=== PATIENT | female | born 2000 | race Caucasian/White ===

== ENCOUNTER 2025-08-11 11:14 | Emergency (ER) | payer BC, SELFPAY ==
--- OUTSIDE RECORDS SUMMARY | 2025-08-11 11:16 | XMS_ITS | Clinical Summary ---
Author Organization [employer] Address [address] [place] [id number] Care Team Providers Care Belt Knife Feeder Name Role Phone Radha Vasquez MD Primary Care Provider [phone] Allergies Active Allergy Reactions Criticality Noted Date Comments Nickel Rash 11/17/2007 Medications DULoxetine (CYMBALTA) 30 mg Delayed-releas e capsuleIndicat ions:Severe episode of recurrent major depressive disorder, without psychotic features (HC) Take 1 Capsule (30 mg) by mouth once daily for 14 days, THEN 2 Capsules (60 mg) once daily. 90 Capsule 5 08/26/20 25 Active busPIRone (BUSPAR) 5 mg tabletIndicati ons:Severe episode of recurrent major depressive disorder, without psychotic features (HC),Generaliz ed anxiety disorder Take 1 Tablet (5 mg) by mouth two times daily for 7 days, THEN 2 Tablets (10 mg) two times daily for 7 days, THEN 3 Tablets (15 mg) two times daily. 222 Tablet 5 08/26/20 25 Active albuterol HFA (PRO-AIR; VENTOLIN; PROVENTIL) 90 mcg/actuation inhalerIndicat ions:SOB (shortness of breath),Season al asthma (HC) Inhale 1-2 Puffs by mouth every 4 hours if needed for Shortness of Breath 1st choice. 1 Each 5 Active cetirizine (ZYRTEC) 10 mg tabletIndicati ons:Seasonal allergies Take 1 Tablet (10 mg) by mouth once daily. 90 Tablet 1 5 Active cholecalcifero l (Vitamin D-3) 2,000 unit capsuleIndicat ions:Vitamin D deficiency Take 1 Capsule (2,000 units) by mouth once daily. 90 Capsule 1 5 Active albuterol HFA (PRO-AIR; VENTOLIN; PROVENTIL) 90 mcg/actuation inhalerIndicat ions:SOB (shortness of breath),Season al asthma (HC) Inhale 1-2 Puffs by mouth every 4 hours if needed for Shortness of Breath 1st choice. 1 Each 2 07/13/20 25 Discontinue d(Reorder (E-cancel not sent)) fluconazole (DIFLUCAN) 150 mg tabletIndicati ons:Yeast infection Take 1 Tablet (150 mg) by mouth one time for 1 dose. 1 Tablet 5 08/06/20 25 Hospital, Clinic, or Other Facility Administered Medication Ordered Dose Route Frequency Start Date End Date Status copper intrauterine device (PARAGARD)Indications:Encoun ter for IUD insertion 1 Device IU Q 10 YEARS 08/09/2025 Act cristiane Active Problems Problem Noted Date Diagnosed Date Atypical squamous cells of u ndetermined significance (ASCUS) on Papanicolaou smear of cervix 07/20/2025 Overview (07/20/2025): 06/2025 ASCUS Plan: Pap due 06/2026 Asthma, unspecified asthma s everity, unspecified whether complicated, unspecified whether persistent 07/13/2025 Dysthymic disorder 06/30/2023 Severe episode of recurrent major depressive disorder, without psychotic features 02/27/2020 Generalized anxiety disorder 02/27/2020 Resolved Problems Problem Noted Date Diagnosed Date Resolved Date Dysthymic disorder 07/25/2014 0 Overview (07/25/2014): May need to rule out ADD in future still Encounters Date Type Department Care Team Description 08/10/2025 Nurse Triage [facility] [address] [place] [address] Radha Vasquez MD Contraception; Abdominal Pain 08/10/2025 Telephone [facility] [address] [place] [address] Radha Vasquez MD 08/09/2025 2:30 PM CDT Office Visit [facility] [address] [place] [address] Valeria Montana, [facility] Visit 08/09/2025 1:35 PM CDT Procedure Only [facility] [address] [place] [address] Radha Vasquez MD IUD 08/09/2025 Travel 08/06/2025 Refill [facility] [address] [place] [address] Radha Vasquez MD Refill Request 08/04/2025 Travel 07/24/2025 10:00 AM CDT Telemedicine [facility] [address] [place] [address] Valeria Montana, [facility] Visit; Telehealth 07/22/2025 Travel 07/16/2025 Telephone [facility] [address] [place] [address] Radha Vasquez MD Form 07/13/2025 1:35 PM CDT Office Visit [facility] [address] [place] [address] Radha Vasquez MD Physical (24 Year Old ); Job Cost Estimator Exam (First one ) 07/13/2025 Travel from Last 3 Months Immunizations Immunization Administration Dates Next Due DTaP 09/29/2007,2002 [id number] (Pediarix) 03/27/2003,02/08/2003 HIB PRP-T (ActHIB,Hiberix) 03/27/2003,02/08/2003 HIB-HepB (Comvax) 01/01/2004,2002 HPV 9 (Gardasil 9) 10/02/2016 Hepatitis A (Peds) 10/02/2016,06/12/2014 Human Papilloma Virus Vaccine 10/02/2016, 015,06/12/2014 Inactivated Polio Vaccine 09/29/2007,2002 Influenza Virus, Unspecified 10/24/2003 Influenza, IIV3 (Age >=3 years) 10/24/2003 MENINGOCOCCAL VACCINE 2 VIAL 2MO-55YO (MENVEO) 03/08/2019,06/12/2014 MMR 10/24/2003 MMRV 09/29/2007 Pneumococcal conj 7-Valent (Prevnar 7) 3,02/08/2003,2002 Tdap 08/09/2025,06/12/2014 Varicella Vaccine 10/24/2003 Family History Medical History Relation Name Comments No Known Problems Father No Known Problems Mother No Known Problems Sister Relation Name Status Comments Father Alive Mother Alive Sister Alive Social History Tobacco Use Types Packs/Day Years Used Date Smoking Tobacco: Never Smokeless Tobacco: Never Tobacco Cessation:Counseling Given: Not Answered Comments:non-smoking home Alcohol Use Standard Drinks/Week Comments No 0 (1 standard drink = 0.6 oz pur e alcohol) PHQ-2 Answer Date Recorded PHQ-2 TOTAL SCORE 5 07/13/2025 Social Connections Answer Date Recorded Do you often feel lonely or isolated from those around you? 0 07/13/2025 Alcohol Use Answer Date Recorded How often do you have a drink containing alcohol ? 0 08/09/2025 Average Number of Drinks Not on file 025 Frequency of Binge Drinking Not on file 07/30 Financial Resource Strain Answer Date R ecorded Difficulty of Paying Living Expenses 3 07/13/2025 Difficulty of Paying Living Expenses Not on file 07/13/2025 Food Insecurity Answer Date Recorded Do you worry your food will run out before you are able to buy more? 1 07/13/2025 Transportation Needs Answer Date Record ed Does lack of transportation keep you from medica l appointments? 1 07/13/2025 Does lack of transportation keep you from work, meetings or getting things that you need? 1 07/13/2025 Housing Stability Answer Date Recorded What is your housing situation today? 1 07/13/2025 Utilities Answer Date Recorded Do you have trouble paying f or utilities (for example, heat, electricity, water, phone)? 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 Gender Identity Not on file Sexual Orientation Not on file Obstetrics History Para Term AB IAB SAB Ectopic Multiple Livin g Live Births 1 0 0 0 0 0 0 0 0 0 0 Date Outcome GA Total Labor Labor/2nd/3rd Weight Sex Type Anes PTL Radha A1 A5 Name Clin Last Filed Vital Signs Vital Sign Reading Time Taken Comments Blood Pressure 106/71 08/09/2025 1:42 PM CDT Pulse 78 08/09/2025 1:42 PM CDT Temperature 36.9 C (98.5 F) 07/13/2025 1:47 PM CDT Respiratory Rate 16 07/09/2023 9:34 PM CDT Oxygen Saturation 100% 08/09/2025 1:42 PM CDT Inhaled Oxygen Concentration - - Weight 78.2 kg (172 lb 6.4 oz) 08/09/2025 1:42 P M CDT Height 155.6 cm (5' 1.26) 07/13/2025 1:47 PM CD T Body Mass Index 32.3 07/13/2025 1:47 PM CDT Plan of Treatment Upcoming Encounters Date Type Department Care Team (Late st Contact Info) Description 08/15/2025 10:45 AM CDT Office Visit [facility] [address] [place] [address] Ruma Sandy, FLYNN [address] [place] [address] 08/16/2025 2:30 PM CDT Telemedicine [facility] [address] [place] [address] Valeria Montana, [facility] [address] [place] [address] 09/06/2025 3:15 PM CDT Telemedicine [facility] [address] [place], [place] [address] Dodie Dobbins, Psychology Student [address] [place], [place] [address] 09/10/2025 1:00 PM CDT Office Visit [facility] [address] [place] [address] Kan Fernandez MD [address] [place], [place] [id number] 10/09/2025 12:45 PM PERSONNEL ASSOCIATE Telemedicine [facility] [address] [place] [address] Marcia Parada NP [address] [place] [address] Health Maintenance Due Date Last Done Comments COVID-19 vaccine series (2023- season) 2025 Influenza Vaccine (#1) 2025 10/24/2003, 2002 BMI (ht and wt on same day) for age 18+ 07/13/2026 07/13/2025, 12/15/2022, 05/20/2022, Additional history exists Chlamydia for age 16-24 07/13/2026 07/13/20 25, 01/09/2023, 05/03/2022 (Verified in Care Everywhere or Patient Record), Additional history exists Depression screening for age 12+ 07/13/2026 07/13/2025, 06/30/2023, 12/15/2022, Additional history exists Pap test for age 21-65 07/13/2026 07/13/2025 Tetanus booster 08/09/2035 08/09/2025, 06/12/2014 RSV vaccine for adults or (1 - 1-dose 75+ series) 2077 Pneumococcal series for age 6-49 Aged Out 03/27/2003, 02/08/2003, 2002 No longer eligible based on patient's age to complete this topic Hepatitis B series for 19+ Completed 01/01, 03/27/2003, 02/08/2003, Additional history exists HPV series for age 9-45 Completed 10/02/20 16, 10/02/2016, 03/25/2015, Additional history exists HIV for age 15-65 Completed 05/05/2021 Hepatitis C screening for age 18-79 Completed 05/05/2021 Procedures Procedure Name Priority Date/Time Associated Diagnosis Comments TSH WITH REFLEX Routine 08/09/2025 3:41 PM CDT Chronic fatigue URINE POCT Routine 08/09/2025 1:38 PM CDT Encounter for IUD insertion FERRITIN Routine 07/13/2025 2:56 PM CDT Chronic fatigue CBC WITH AUTO DIFFERENTIAL Routine 07/13/2025 2:56 PM CDT Chronic fatigue COMP METABOLIC PANEL Routine 07/13/2025 2:56 PM CDT Chronic fatigue STORE GROCERY MERCHANDISER THIN PREP PAP SCREEN IMAGED Routine 07/13/2025 2:53 PM CDT Screening for cervical cancer GC CHLAMYDIA TRACH PROBE Routine 07/13/2025 2:53 PM CDT Screening examination for STD (sexually transmitted disease) ANTI HIV 1/2 Routine 05/05/2021 11:57 AM CDT Encounter for assessment of STD exposure ANTI HCV Routine 05/05/2021 11:57 AM CDT Encounter for assessment of STD exposure from Last 3 Months or Most Recently Relevant to Health Maintenance Results * TSH WITH REFLEX (08/09/2025 3:41 PM CDT) TSH W/REFLEX TO FT4 0.73 mIU/L 08/10/2025 4:51 AM CDT [facility] Comment: Reference Range > or = 20 Years 0.40-4.50 Ranges First trimester 0.26-2.66 Second trimester 0.55-2.73 Third trimester 0.43-2.91 Blood BLOOD SPECIMEN / Unknown [facility] / Unknown 08/09/2025 3:41 PM CDT 08/09/2025 3:41 PM CDT Radha Vasquez MD CHEMISTRY Final Resul t [employer] [address] [place] [address], [place] [phone] * POCT Urine (08/09/2025 1:38 PM CDT) Pathologist [facility] POC HCG URINE NEGATIVE NEGATIVE 08/09/2025 1:[address] [facility] Urine URINE SPECIMEN / Unknown Non-Blood / Unknown 08/09/2025 1:38 PM CDT 08/09/2025 1:42 PM CDT Radha Vasquez MD URINE Final Resul t Performing Organization Address [facility] Co de Phone Number [employer] [address] [address], [place] [phone] [place] [address], [place] [phone] * (ABNORMAL) CBC AND DIFFERENTIAL (07/13/2025 2:56 PM CDT) [facility] WHITE BLOOD CELL COUNT 6.6 3.8 - 10.8 Thousand/u L [facility] RED BLOOD CELL COUNT 4.36 3.80 - 5.10 Million/uL [facility] HEMOGLOBIN 13.7 11.7 - 15.5 g/dL [facility] HEMATOCRIT 41.0 35.0 - 45.0 % [facility] MCV 94.0 80.0 - 100.0 fL [facility] MCH 31.4 27.0 - 33.0 pg [facility] MCHC 33.4 32.0 - 36.0 g/dL [facility] Comment: For adults, a slight decrease in the calculated MCHC value (in the range of 30 to 32 g/dL) is most likely not clinically significant; however, it should be interpreted with caution in correlation with other red cell parameters and the patient's clinical condition. RDW 12.8 11.0 - 15.0 % [facility] PLATELET COUNT 235 140 - 400 Thousand/u L [facility] MPV 13.1(H) 7.5 - 12.5 fL [facility] ABSOLUTE NEUTROPHILS 4,066 1,500 - 7,800 cells/uL [facility] ABSOLUTE LYMPHOCYTES 1,742 850 - 3,900 cells/uL [facility] ABSOLUTE MONOCYTES 521 200 - 950 cells/uL [facility] ABSOLUTE EOSINOPHILS 211 15 - 500 cells/uL [facility] ABSOLUTE BASOPHILS 59 0 - 200 cells/uL [facility] NEUTROPHILS 61.6 % [facility] LYMPHOCYTES 26.4 % [facility] MONOCYTES 7.9 % [facility] EOSINOPHILS 3.2 % [facility] BASOPHILS 0.9 % [facility] Blood BLOOD SPECIMEN / Unknown 07/13/2025 2:56 PM CDT 07/13/2025 2:56 PM CDT us Radha Vasquez MD HEMATOLOGY Final Resul t [employer] [facility] [address] [place] [address], [place] [phone] [facility] [address] [place] [address] * FERRITIN (07/13/2025 2:56 PM CDT) FERRITIN 35 16 - 154 ng/mL [facility] Blood BLOOD SPECIMEN / Unknown 07/13/2025 2:56 PM CDT 07/13/2025 2:56 PM CDT Radha Vasquez MD CHEMISTRY Final Resul t [facility] [address] [place] [address], [place] [phone] [facility] [address] [place] [address] * COMP METABOLIC PANEL (07/13/2025 2:56 PM CDT) GLUCOSE 84 65 - 99 mg/dL [facility] [employer] [facility] Comment: Fasting reference interval UREA NITROGEN (BUN) 10 7 - 25 mg/dL [facility] CREATININE 0.72 0.50 - 0.96 mg/dL [facility] Lambe EGFR 121 > OR = 60 mL/min/1. 73m2 [facility] BUN/CREATININE RATIO SEE NOTE: 6 - 22 (calc) [facility] Comment: Not Reported: BUN and Creatinine are within reference range. SODIUM 141 135 - 146 mmol/L [facility] POTASSIUM 4.4 3.5 - 5.3 mmol/L [facility] CHLORIDE 105 98 - 110 mmol/L [facility] CARBON DIOXIDE 31 20 - 32 mmol/L [facility] CALCIUM 9.8 8.6 - 10.2 mg/dL [facility] PROTEIN, TOTAL 7.4 6.1 - 8.1 g/dL [facility] ALBUMIN 4.6 3.6 - 5.1 g/dL [facility] GLOBULIN 2.8 1.9 - 3.7 g/dL (calc) [facility] ALBUMIN/GLOBULIN RATIO 1.6 1.0 - 2.5 (calc) [facility] BILIRUBIN, TOTAL 0.4 0.2 - 1.2 mg/dL [facility] ALKALINE PHOSPHATASE 82 31 - 125 U/L [facility] AST 18 10 - 30 U/L [facility] ALT 26 6 - 29 U/L [facility] Blood BLOOD SPECIMEN / Unknown 07/13/2025 2:56 PM CDT 07/13/2025 2:56 PM CDT Radha Vasquez MD CHEMISTRY Final Resul t [facility] [facility] [address] [place] [address], [facility] [address] [place] [address] * (ABNORMAL) STORE GROCERY MERCHANDISER THIN PREP PAP SCREEN IMAGED [[id number]] (07/13/2025 2:53 PM CDT) Case Report Gynecologic Cytology Report Case: [id number] Authorizing Provider: Radha Vasquez MD Collected: 07/13/20251452 Ordering Location: [facility] Received: 07/13/2025 1453 Clinic First Screen: Hebert Linares Pathologist: Gabby Salcedo MD Specimen: STORE GROCERY MERCHANDISER ThinPrep Vial Screening, Cervical 07/20/2025 9:45 AM CDT [facility] INTERPRETATION/ RESULT ATYPICAL SQUAMOUS CELLS OF UNDETERMINED SIGNIFICANCE (ASCUS)(A) (none) 07/20/2025 9:45 AM CDT [facility] at 0945 CDT ORGANISM(S) Fungal organisms morphologically consistent with Christina species 07/20/2025 9:45 AM CDT [facility] SPECIMEN ADEQUACY Satisfactory for evaluation Endocervical component present 07/20/2025 9:45 AM CDT [facility] Date of LMP 07/08/2025 07/20/2025 9:45 AM CDT [facility] Last Pap Date first 07/20/2025 9:45 AM CDT [facility] Last Pap Result First Pap/Unknown 9:45 AM CDT [facility] Abnormal Pap or Bellflower Bx in last 5 years No 07/20/2025 9:45 AM CDT [facility] Menstrual Status Regular Periods 07/20/2025 9:45 AM CDT [facility] Bellflower Bx Done Today No 07/20/2025 9:45 AM CDT [facility] EN[facility] Additional Information None given 07/20/2025 9:45 AM CDT [facility] Comment: Cytology is screened at [facility] - [address], [place] [address] and [facility] - [address], [place] [address] and [facility] - [address] [place] [address] Interpreted at [facility] - [address], [place] [address] Automated Review Successful 07/20/2025 9:45 AM CDT [facility] Comment:Specimen processed s uccessfully by automated tree cutter device, ThinPrep Imaging System, [employer] Note The pap test is a screening technique, not a diagnostic procedure. It is used primarily to screen for squamous cancers and precursor lesions. Published studies have shown that it is subject to both false negative and false positive results. The pap test should not be used as the sole means to diagnose or exclude pre-malignant and malignant lesions. 07/20/2025 9:45 AM CDT [facility] Other (Cervical) Non-Blood / Unknown 07/13/2025 2:53 PM CDT 07/13/2025 2:53 PM CDT us Radha Vasquez MD PATHOLOGY/CYTOLOGY Final Re sult [facility] [address] [place] [address], [place] * GC & CHLAMYDIA DNA PCR [[id number]] (07/13/2025 2:53 PM CDT) CHLAMYDIA PROBE Negative 2:40 AM CDT [facility] TR[facility] LABORATORY N GONORRHOEAE PROBE Negative 07/14/2025 2:40 AM CDT [facility] Other VAGINAL SWAB / Unknown Non-Blood / Unknown 07/13/2025 2:53 PM CDT 07/13/2025 2:53 PM CDT us Radha Vasquez MD MICROBIOLOGY Final Resul t [facility] [address] * ANTI HCV (05/05/2021 11:57 AM CDT) HEPATITIS C ANTIBODY Non-React cristiane Non-React cristiane 05/05/2021 6:29 PM CDT [facility] Comment:Antibodies to HCV no t detected; does not exclude the possibility of exposure to HCV. Blood BLOOD SPECIMEN / Unknown Venipuncture / Unknown 05/05/2021 11:57 AM CDT 05/05/2021 11:57 AM CDT us Jennifer GUTIERREZ SEND OUTS Final Result Performing Organization Address [facility]/ZIP Co de Phone Number [facility] [address] * ANTI HIV 1/2 (05/05/2021 11:57 AM CDT) HIV-1/HIV-2 ANTIBODY Non-Reacti ve Non-Reacti ve 05/05/2021 7:07 PM CDT [facility] Comment:HIV-1 p24 and HIV-1/ HIV-2 Ab not detected. Blood BLOOD SPECIMEN / Unknown Venipuncture / Unknown 05/05/2021 11:57 AM CDT 05/05/2021 11:57 AM CDT Jennifer GUTIERREZ SEND OUTS Final Result [facility] [address] from Last 3 Months or Most Recently Relevant to Health Maintenance Insurance TRAILOR [id number] [facility] [employer] LINK [id number] [employer] [facility] [place] Care Teams Belt Knife Feeder Relationship Specialty Start Date End Date Radha Vasquez MD [address] [place] [address] PCP - General Family Practice 09/17/20
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
--- OUTSIDE RECORDS SUMMARY | 2025-08-11 11:16 | XMS_ITS | Clinical Summary ---
Author Organization [facility] Address [address] [place] [address] Care Team Providers Care Cooking Chef Name Role Phone Found, No Pcp MD Primary Care Provider Unavailab le Source Comments You are receiving this document as you are listed as the primary care provider,follow-up provider, or the patient has been referred to you for consultation.This is in compliance with the Medicare and[facility] EHR Incentive Program,which states Providers who transition their patient to another setting of careor provider of care or refers their patient to another provider of care shouldprovide summary care record for each transition of care or referral. [facility] Allergies No known active allergies Medications ondansetron (ZOFRAN-ODT) 4 MG disintegrating tablet Take 1 Tablet (4 mg) by mouth every 8 hours as needed for Nausea. 10 Tablet 2 Active Social History Tobacco Use Types Packs/Day Years Used Date Smoking Tobacco: Never Assessed Comments Unknown Sex and Gender Information Value Date Recorded Sex Assigned at Not on file Legal Sex Female 10:28 AM CDT Gender Identity Not on file Sexual Orientation Not on file Last Filed Vital Signs Vital Sign Reading Time Taken Comments Blood Pressure 114/80 05/03/2022 12:55 PM CDT Pulse 75 05/03/2022 1:17 PM CDT Temperature 36.7 C (98.1 F) 05/03/2022 10:48 AM CDT Respiratory Rate 18 05/03/2022 10:48 AM CDT Oxygen Saturation 97% 05/03/2022 1:17 PM CDT Inhaled Oxygen Concentration - - Weight 61.2 kg (135 lb) 05/03/2022 10:48 AM CDT Height - - Body Mass Index - - Plan of Treatment Health Maintenance Due Date Last Done Comments Cervical Cancer Screening Due 2002 Hep C Screening (Preventive Services) 2002 MenB Immunization Discussion 2002 HIV Screening (Preventive Services) 2018 Adult Preventive Visit 2020 HepB Vaccine (1) 2021 Chlamydia 05/03/2023 05/03/2022 DTaP/Tdap/Td Vaccine (6 - Tdap) 06/12/2024 06/12/2014, 09/29/2007, 03/27/2003, Additional history exists COVID-19 Vaccine ( season) 2025 Influenza Vaccine (#1) 2025 10/24/2003, 2002 Zoster/Shingles Vaccine (1 of 2) 2052 Pneumococcal Vaccine Aged Out 03/27/2003, 02/08/2003, 2002 No longer eligible based on patient's age to complete this topic Hib Vaccine Completed 01/01/2004, 02/28, 02/08/2003, Additional history exists IPV (Polio) Vaccine Completed 09/29/2007, 03/27/2003, 02/08/2003, Additional history exists HPV Vaccine Completed 10/02/2016, 02/2016, 03/25/2015, Additional history exists HepA Vaccine Completed 10/02/2016, 06/12/2014 MCV4 Vaccine Completed 03/08/2019, 06/12/2014 Procedures Procedure Name Priority Date/Time Associated Diagnosis Comments CHLAMYDIA & GC (14 YEARS & OLDER) STAT 05/03/2022 11:53 AM CDT from Last 3 Months or Most Recently Relevant to Health Maintenance Results * CHLAMYDIA & GC (05/03/2022 11:53 AM CDT) Chlamydia Trachomatis STD Not Detected Not Detected 05/03/2022 1:39 PM CDT [facility] N. gonorrhoeae STD Not Detected Not Detected 05/03/2022 1:39 PM CDT [facility] Swab STD VAGINAL SWAB / Unknown Non-blood Collection / Unknown 05/03/2022 11:53 AM CDT 05/03/2022 11:57 AM CDT Narrative [facility] - 05/03/2022 1:39 PM CDT Test performed by Real-Time PCR us Mark Cruz MD LAB_1 Final Result [facility] [address] [place] [address], [facility] [phone] from Last 3 Months or Most Recently Relevant to Health Maintenance Insurance [facility] Care Teams Cooking Chef Relationship Specialty Start Date End Date Found, No Pcp, 1971 [facility] [place] [address] PCP - General 05/03/22
[2025-08-11 11:40] VITALS: BP 107/71; PULSE 79; RESP 16; TEMP 36.6; O2SAT 99; BMI 32.5
[2025-08-11 12:47] LABS: Appearance Urine Clear (Clear)
--- NOTE | 2025-08-11 13:04 | CRLHL7_ITS ---
For Patients: As a result of the Century Cures Act, medical imaging exams and procedure reports are released immediately into your electronic medical record. You may view this report before your referring provider. If you have questions, please contact your health care provider. INDICATION: Pelvic pain status post IUD placement COMPARISON: None. TECHNIQUE: 2D england-scale and color Doppler images were acquired of the pelvis using a transabdominal and transvaginal approach. Transvaginal imaging performed to better visualize the endometrial stripe and ovaries. Spectral Doppler imaging of both ovaries also performed due to the history of pelvic pain. FINDINGS: Right fundal fibroid is present which measures 1.2 x 1.5 x 1.4 cm. Uterus measures 6.8 cm in length by 3.3 cm in AP diameter by 3.6 cm in transverse dimension. Endometrium measures 4 millimeters. IUD is present in good position within the endometrial canal. The right ovary measures 2.3 x 2.5 x 1.9 cm in size and the left ovary measures 1.8 x 2.1 x 3.3 cm. The ovaries demonstrate normal arterial and venous blood flow on color Doppler analysis. There are no suspicious fluid collections within the cul-de-sac. IMPRESSION: IUD within the fundal endometrium. Right fundal fibroid measures 1.5 cm. Dictated by Cleveland Caruso MD @ 08/11/2025 2:36:49 PM (Electronically Signed)
[2025-08-11 13:22] LABS: Hematocrit* 41.6 % (33.0-51.0); Hemoglobin* 13.9 gm/dL (12.0-16.0); Immature Granulocytes Abs Auto 0.01 K/uL (0.00-0.30); Immature Granulocytes Pct Auto 0.1 %; Mean Corpuscular HGB Conc 33 gm/dL (32-36); Mean Corpuscular Hemoglobin 31 pg (26-34); Mean Corpuscular Volume 91 fL (80-100); RDW Coefficient of Variation % 12.2 % (11.5-15.5); Red Blood Count* 4.56 m/uL (4.00-5.20); White Blood Count* 6.75 K/uL (4.50-11.00)
[2025-08-11 13:25] LABS: Lymphocytes Absolute Auto 1.30 K/uL (0.90-2.90)
[2025-08-11 13:26] LABS: Slide Review Reflex No
[2025-08-11] MEDS: ONDANSETRON 2 MG/ML inj 4 MG IVP (13:26)
--- NOTE | 2025-08-11 13:58 | ED.ABDPAIN ---
HPI - Abdominal Pain General Date Seen: 08/11/25 Chief Complaint: Abdominal Pain Stated Complaint: abdomen pain, from urgent care Time Seen by Provider: 08/11/25 12:23 Source: patient Mode of arrival: ambulatory Limitations: no limitations History of Present Illness HPI narrative: Patient is a 24-year-old female presenting to the emergency department for pelvic pain that began 3 days ago. States 3 days ago she had an IUD placement for the very 1st time and has been having this pain ever since. This is the 1st time she had an IUD and denied know if the pain was normal or not with placement. Pain is not been getting better she states it got really bad yesterday where she felt like she was unable to stand up due to the pain. Pain is better today than it was at its worse yesterday but is still quite painful. She has been feeling nauseated since symptoms started but has not vomited. Ylsw-bql-[id number] pain medications have not helped with her symptoms. States she has had a small amount of vaginal bleeding but has not been saturating her pads at all. Denies fevers, chills, chest pain, shortness of breath, headache, lightheadedness, dizziness, weakness, numbness. No other concerns noted at this time. Denies having symptoms like this before. Related Data Home Medications ?Medication ?Instructions ?Recorded ?Confirmed albuterol sulfate 90 mcg/actuation 1 - 2 puff inhalation Q4H PRN 08/11/25 08/11/25 aerosol inhaler (Ventolin HFA) dyspnea buspirone 5 mg tablet 5 mg PO 08/11/25 08/11/25 cetirizine 10 mg tablet 10 mg PO DAILY 08/11/25 08/11/25 cholecalciferol (vitamin D3) 50 50 mcg PO DAILY 08/11/25 08/11/25 mcg (2,000 unit) capsule duloxetine 30 mg capsule,delayed mg PO 08/11/25 08/11/25 release fluconazole 150 mg tablet 150 mg PO ONCE 08/11/25 08/11/25 fluticasone propionate 50 1 spray intranasal DAILY 08/11/25 08/11/25 mcg/actuation nasal spray,suspension Previous Rx's ?Medication ?Instructions ?Recorded ondansetron 4 mg disintegrating 4 mg PO Q6H #20 tabs 08/11/25 tablet Allergies Allergy/AdvReac Type Severity Reaction Status Date / Time Bhavesh Allergy Rash Uncoded 08/11/25 11:45 Review of Systems Status of ROS Reports: 10 or more systems reviewed and unremarkable except as noted in History and below [facility] Social History Smoking Status: Never smoker Do you use any of these nicotine containing products: None Second hand tobacco smoke exposure: No How often do you have a drink containing alcohol: never AUDIT-C Alcohol total score: 0 Non-prescribed substance use: denies use Exam Narrative: Exam Narrative: Const: Well-nourished, Well-developed, in mild distress Eyes: PERRL, no conjunctival injection, and symmetrical lids HENT: Atraumatic external nose and ears. Moist mucous membranes. Neck: Symmetric, trachea midline, No thyromegaly. CVS: RRR, No murmurs or gallops. Peripheral pulses 2+ and equal in all extremities RESP: Unlabored respiratory effort. Clear to auscultation bilaterally. GI: Nontender/Nondistended, No rebound or guarding. Pelvic: Bilateral pelvic tenderness MSK:Extremities w/o deformity, Normal Active ROM Skin: Warm, Dry. No rashes or lesions. Neuro: Normal Muscle tone, No focal neurological deficits. Psych: Awake, Alert, & Oriented x3. Appropriate mood and affect. Const: Vital Signs, click to edit/add: Vital Signs - 24 hr 08/11/25 11:40 08/11/25 14:56 Temperature 97.8 F Pulse Rate 72 Pulse Rate [Pulse Oximeter] 79 Respiratory Rate 16 14 Blood Pressure 115/74 Blood Pressure [Ri ght Upper Arm] 107/71 Pulse Oximetry 99 95 Oxygen Delivery Me thod Room Air Room Air Course Vital Signs Vital signs: Initial Vital Signs Temperature 97.8 F 08/11/25 11:40 Temperature Source Temporal Artery Scan 08/11/25 11:40 Pulse Rate 79 08/11/25 11:40 Respiratory Rate 16 08/11/25 11:40 Blood Pressure 107/71 08/11/25 11:40 Blood Pressure Mean 83 08/11/25 11:40 Blood Pressure Position Sitting 08/11/25 11:40 Pulse Oximetry 99 08/11/25 11:40 Oxygen Delivery Method Room Air 08/11/25 11:40 Vital Signs Temperature 97.8 F 08/11/25 11:40 Pulse Rate 79 08/11/25 11:40 Respiratory Rate 16 08/11/25 11:40 Blood Pressure 107/71 08/11/25 11:40 Pulse Oximetry 99 08/11/25 11:40 Oxygen Delivery Method Room Air 08/11/25 11:40 Temperature 97.8 F 08/11/25 11:40 Pulse Rate 72 08/11/25 14:56 Respiratory Rate 14 08/11/25 14:56 Blood Pressure 115/74 08/11/25 14:56 Pulse Oximetry 95 08/11/25 14:56 Oxygen Delivery Method Room Air 08/11/25 14:56 Medications Administered Medications: Discontinued Medications Generic Name Dose Route Start Last Admin Trade Name Abhishekq PRN Reason Stop Dose Admin Ketorolac Tromethamine 15 mg 08/11/25 13:14 08/11/25 13:26 Ketorolac 15 Mg/Ml Inj IVP 08/11/25 13:15 15 mg ONCE ONE Administration Morphine Sulfate 4 mg 08/11/25 13:04 08/11/25 14:11 Morphine 4 Mg/Ml Inj IVP 08/11/25 13:05 Not Given ONCE ONE Ondansetron HCl 4 mg 08/11/25 13:04 08/11/25 13:26 Ondansetron 2 Mg/Ml Inj IVP 08/11/25 13:05 4 mg ONCE ONE Administration MDM - Abdominal Pain MDM Narrative Medical decision making narrative: Patient is a 24-year-old female presenting to the the emergency department for lower pelvic pain after placement of the IUD. There is concern this could be and improperly placed IUD. Will do an ultrasound for better evaluation. Will also check a test to make sure this is not a ectopic . Also order CBC, CMP, urinalysis. While pain is in the lower pelvic region worse left than the right my concern for appendicitis or diverticulitis is relatively low. Will hold off on CT imaging until lab work returns. Toradol given for pain and Zofran for nausea. Ultrasound returned showing a fundal fibroid. Other than that no abnormalities. IUD is positioned normally. Patient is feeling much better at this time and with normal lab work does not want any further imaging. That seems reasonable and I do not believe is necessary to but this young patient to radiation. She will be discharged. Zofran prescribed. Lab Data Labs: Lab Results 08/11/25 08/11/25 Range/Units 12:41 13:15 WBC 6.75 (4.50-11.00) K/uL RBC 4.56 (4.00-5.20) m/uL Hgb 13.9 (12.0-16.0) gm/dL Hct 41.6 (33.0-51.0) % MCV 91 (80-100) fL MCH 31 (26-34) pg MCHC 33 (32-36) gm/dL RDW Coeff of Nicole 12.2 (11.5-15.5) % Plt Count 209 (140-440) K/uL Neut % (Auto) 67.8 (42.0-72.0) % Lymph % (Auto) 19.6 L (20-44) % Boundary % (Auto) 7.7 (0.0-11.0) % Eos % (Auto) 4.1 (0.0-7.0) % Baso % (Auto) 0.7 (0.0-3.0) % Neut # (Auto) 4.57 (1.7-7.0) K/uL Lymph # (Auto) 1.30 (0.90-2.90) K/uL Boundary # (Auto) 0.50 (0.00-0.90) K/UL Eos # (Auto) 0.28 (0.00-0.50) K/uL Baso # (Auto) 0.05 (0.00-0.30) K/uL Abs Immat Gran (auto) 0.01 (0.00-0.30) K/uL Imm/Tot Granulo (auto) 0.1 % Sodium 140 (135-149) mmol/L Potassium 4.0 (3.6-5.1) mmol/L Chloride 105 (96-114) mmol/L Carbon Dioxide 28 (20-32) mmol/L Anion Gap 7 (7-15) mEq/L BUN 7 (5-24) mg/dL Creatinine 0.6 (0.5-1.5) mg/dL Estimated Creat Clear 110.98 Estimated GFR 130 ml/min Glucose 82 (60-115) mg/dL Calcium 9.8 (8.4-10.6) mg/dL Total Bilirubin 0.3 (0.1-1.5) mg/dL AST 27 (12-35) U/L ALT 25 (4-35) U/L Alkaline Phosphatase 83 (40-150) U/L Total Protein 8.2 (6.0-8.3) g/dL Albumin 4.8 (3.3-5.0) g/dL Urine Color Yellow (Yellow) Urine Appearance Clear (Clear) Urine pH 7.0 (5.0-8.5) Ur Specific [place] 1.010 (1.000-1.030) Urine Protein Negative (Negative) Urine Glucose (UA) Negative (Negative) Urine Ketones Negative (Negative) Urine Blood 1+ A (Negative) Urine Nitrite Negative (Negative) Urine Bilirubin Negative (Negative) Urine Urobilinogen 0.2 (0.2-1.0) Ur Leukocyte Esterase Negative (Negative) Urine RBC 2-5 A (0-2) Urine WBC 0-2 (0-5) Ur Squamous Epith Cells Moderate A (None-Few) Urine Bacteria Moderate A (None) Urine HCG, Qual Negative (Negative) Lab Acknowledgement Test Added Imaging Data Transvaginal Ultrasound: Attestation: I have reviewed the pertinent imaging results. Radiologist's impression: IUD within the fundal endometrium. Right fundal fibroid measures 1.5 cm. Dictated by Cleveland Caruso MD @ 08/11/2025 2:36:49 PM Discharge Plan Discharge Clinical Impression: Pelvic pain Patient Disposition: Home, Self-Care Condition: Improved Instructions: Pelvic Pain (ED) Additional Instructions: Take Tylenol and ibuprofen as needed for pain. Use the Zofran as needed for nausea. Return to emergency department for new or worsening symptoms. You do have a fibroid on her uterus. These are typically benign. Recommend following up with your OB Gyne. Prescriptions: New ondansetron 4 mg tablet,disintegrating 4 mg PO Q6H Qty: 20 0RF No Action buspirone 5 mg tablet 5 mg PO cetirizine 10 mg tablet 10 mg PO DAILY fluconazole 150 mg tablet 150 mg PO ONCE albuterol sulfate [Ventolin HFA] 90 mcg/actuation HFA aerosol inhaler 1 - 2 puff inhalation Q4H PRN (Reason: dyspnea) fluticasone propionate 50 mcg/actuation spray,suspension 1 spray intranasal DAILY duloxetine 30 mg capsule,delayed release(DR/EC) PO cholecalciferol (vitamin D3) 50 mcg (2,000 unit) capsule 50 mcg PO DAILY Follow Up/Referrals: Radha Vasquez MD [Primary Care Provider, Family Practice] Stand Alone Forms: [employer] Info Instructions
[2025-08-11 14:34] LABS: Ur HCG Qualitative* Negative (Negative)
[2025-08-11 14:40] LABS: Chloride* 105 mmol/L (96-114)
[2025-08-11 14:41] LABS: Albumin* 4.8 g/dL (3.3-5.0); Potassium* 4.0 mmol/L (3.6-5.1); Sodium* 140 mmol/L (135-149)
[2025-08-11 14:43] LABS: Blood Urea Nitrogen* 7 mg/dL (5-24); Creatinine* 0.6 mg/dL (0.5-1.5); Est. Creatinine Clearance* 110.98; Estimated Glomerular Filt Rate 130 ml/min
[2025-08-11 14:44] LABS: Alanine Aminotransferase* 25 U/L (4-35); Alkaline Phosphatase* 83 U/L (40-150); Anion Gap 7 mEq/L (7-15); Aspartate Amino Transferase* 27 U/L (12-35); Bilirubin Total* 0.3 mg/dL (0.1-1.5); Calcium* 9.8 mg/dL (8.4-10.6); Carbon Dioxide* 28 mmol/L (20-32); Glucose* 82 mg/dL (60-115); Total Protein* 8.2 g/dL (6.0-8.3)
[2025-08-11 14:56] VITALS: BP 115/74; PULSE 72; RESP 14; O2SAT 95
== END 2025-08-11 15:31 | disposition home or self-care (01) ==
PROVIDERS: Emergency Provider Student in an Organized Health Care Education/Training Program; PCP Family Medicine
DX: R10.2 Pelvic and perineal pain (principal)
CPT/HCPCS: 36415; 76830; 80053; 81001; 81025; 85025; 87086; 93976; 96374; 96375; 99284; J1885; J2405